=== PATIENT | female | born 1995 | race Caucasian/White ===

== ENCOUNTER 2023-09-02 06:07 | Inpatient (IN) | payer BC ==
[~2023-09-02] VITALS: Ht 167.6 cm; Wt 86.4 kg
[2023-09-02] VITALS (160 sets, daily range): BP systolic 61–162; BP diastolic 26–117; PULSE 58–127; TEMP 97.6–98.7; O2SAT 88–100
[~2023-09-02 06:07] MED LIST: COLACE 100100 MG/CAP PO; MOTRIN 800800 MG/TAB PO; NATURAL IRON65 MG; PRENATAL TABLET PO; PRILOSEC 20MG20 MG PO
[2023-09-02] MEDS ORDERED: LR 1,000 ML IV SCH (06:15)
[2023-09-02] MEDS ORDERED: LR & Oxytocin 500 ML IV SCH (06:15)
--- NOTE | 2023-09-02 06:20 | NUR ---
PT ORIENTED TO ROOM AND CHANGED INTO GOWN. PLACED ON MONITORS. FHT CATAGORY 1. FIRST BP HIGH DUE TO ANXIETY, BUT CAME DOWN AT REPEAT 10 MINUTES LATER. ME REPORTS REGULAR MOVEMENT, DENIES LOF OR VB.
[2023-09-02] MEDS ORDERED: TUMS500 MG PO (06:57)
[2023-09-02 07:03] LABS: BASO # 0.1 K/mm3 (0.0-0.2); BASO % 0.6 % (0.0-2.0); EOS # 0.2 K/mm3 (0.0-0.7); EOS % 1.9 % (0.0-4.0); GRAN # 6.8 K/mm3 (1.4-6.5); GRAN % 69.7 % (42.2-75.2); HEMOGLOBIN 11.1 g/dl (12.5-16.0); LYMPH % 20.2 % (20.0-51.0); MEAN CELL VOLUME 93 fl (80.0-100.0); MEAN CORPUSCULAR HEMOGLOBIN 30 pg (27-31); MEAN CORPUSCULAR HGB CONC 32 g/dl (33.0-37.0); MEAN PLATELET VOLUME 10.5 fl (7.4-10.4); MONO # 0.7 K/mm3 (0.1-0.6); MONO % 6.7 % (1.7-9.3); PLATELET COUNT 241 K/mm3 (130-400); RED BLOOD COUNT 3.73 M/mm3 (4.10-5.30); REDCELL DISTRIBUTION WIDTH-CV 14.4 % (11.5-14.5)
[2023-09-02 07:06] LABS: HEMATOCRIT 34.7 % (37.0-47.0)
--- NOTE | 2023-09-02 08:30 | NUR ---
DR FLOR CALLED TO CHECK IN ON PT. PT DOING WELL. BABY CATAGORY 1. PT BP WAS ELEVATED AT FIRST BP BUT HAS SINCE COME DOWN TO NORMAL. PIT IS AT 8. DR FLOR SAID OKAY, HE WOULD BE HERE IN ABOUT AN HOUR.
--- NOTE | 2023-09-02 10:44 | NUR ---
1044- CALLED LAUREN FOR PT REQUESTED EPIDURAL. HE SAID HE WAS ON HIS WAY. 1050- DR FLOR ON UNIT. ALERTED DR FLOR THAT PT BP WAS ELEVATED, BUT LAUREN WAS ON HIS WAY FOR AN EPIDURAL. DR FLOR SAID OKAY. 1102- TURNED PITOCIN DOWN FROM 14 TO [address] FLOR ALERTED TO THE CHANGE. 1111- LAUREN AT BEDSIDE FOR EPIDURAL PLACEMENT TALKING WITH PT ABOUT RISKS/SIDE EFFECTS. PT SEATED ON SIDE OF BED. PB AND O2 MONITORS APPLIED. BP ELEVATED, O2 WNL. 1125- TEST DOSE. PT TOLERATED PROCEEDURE WELL. TN WAS REPOSITIONED TO WEDGE LEFT. DIFFICULTY TRACING FHT AND CX DURRING THIS TIME.
[2023-09-02] MEDS ORDERED: ROPivacaine PF 0.2% 200 ML IV ONE ×2 (11:09→19:30)
[2023-09-02] MEDS ORDERED: diphenhydrAMINE 25 MG CAP PO PRN ×2 (11:45→19:45)
[2023-09-02] MEDS ORDERED: ePHEDrine 50 MG/10 ML VIAL IV PRN (11:45)
[2023-09-02] MEDS ORDERED: Ondansetron 4 MG/2 ML VIAL IV PRN ×3 (11:45→18:45)
[2023-09-02] MEDS ORDERED: diphenhydrAMINE 50 MG/ML 1 ML VIAL IV PRN (11:45)
[2023-09-02] MEDS ORDERED: Naloxone 0.4 MG/ML VIAL IV PRN ×3 (11:45→18:45)
[2023-09-02] MEDS ORDERED: Chloroprocaine PF 3% (30 MG/ML) 20 ML VIAL ONE (13:22)
[2023-09-02] MEDS ORDERED: Oxytocin 10 UNITS/ML VIAL ONE (13:29)
[2023-09-02] MEDS ORDERED: Ondansetron 4 MG/2 ML VIAL ONE (13:29)
[2023-09-02] MEDS ORDERED: NS 20 ML IV ONE ×2 (13:29→17:45)
[2023-09-02] MEDS ORDERED: Ketorolac 30 MG/ML VIAL ONE (13:29)
--- NOTE | 2023-09-02 13:30 | NUR ---
1143- PT SVE 6/100/0. DR FLOR ON UNIT NOTIFIED OF EXAM. 1208- FHT HAD A FEW VARIABLES, SVE 9/100/0. BERNAL PLACED AT THIS TIME. CLEAR YELLOW URINE SEEN. PT PLACED IN LL RIGHT LEG STIRUP. 1222- PT FEELING PRESURE. SVE PT COMPLETE, [address] FLOR ON UNIT NOTIFIED. DR FLOR OKAYED TO START PUSHING WITH PT. 1230- BEGAN PUSHING WITH PT. FIRST PUSH FHT HAD 90 SECOND DECEL. WAITED FOR BABY TO RECOVER FOR A FEW CX. 1241- BEGAN PUSHING AGAIN. PT PUSHED VERY WELL WITH EACH CX WITH NO DECENT. DR FLOR AT BEDSIDE SEVERAL TIMES WHILE PUSHING. 1318- DR FLOR LET PT KNOW THAT SHE WOULD NEED A DUE TO BABY NOT DECENDING. 1324- AZITHROMYCIN HUNG. 1328- LAUREN AT BEDSIDE DOSING PT FOR SURGERY. 1330- SECOND BERNAL PLACED. AT FIRST NO URINE RETURN. PT COUGHED AND BLOOD TINGED URINE CAME INTO VEIW. 1332- PT TAKEN TO OR BY BED.
[2023-09-02] MEDS ORDERED: dexAMETHasone 10 MG/ML VIAL ONE (13:35)
[2023-09-02] MEDS ORDERED: NS 10 ML IV ONE ×2 (13:45→16:50)
[2023-09-02] MEDS ORDERED: Phenylephrine 10 MG/ML VIAL ONE ×2 (13:46→16:46)
[2023-09-02] MEDS ORDERED: EPINEPHrine 1 MG/1 ML Ampule ONE (14:03)
[2023-09-02] MEDS ORDERED: Magnes Hydrox (MOM) 80 MG/ML 30 ML CUP PO PRN ×2 (14:45→18:45)
[2023-09-02] MEDS ORDERED: Loratadine 10 MG TAB PO PRN ×2 (14:45→18:45)
[2023-09-02] MEDS ORDERED: oxyCODONE 5 MG TAB PO PRN (14:45)
[2023-09-02] MEDS ORDERED: Morphine 4 MG/ML VIAL IV PRN ×2 (14:45→18:45)
[2023-09-02] MEDS ORDERED: LR 1,000 ML IV PRN ×2 (14:45→18:45)
[2023-09-02] MEDS ORDERED: Measles/Mumps/Rubella Virus Vaccine Live w Diluent 0.5 ML VIAL SQ SCH ×2 (14:45→18:45)
[2023-09-02] MEDS ORDERED: Acetaminophen 500 MG TAB PO SCH (14:45)
[2023-09-02] MEDS ORDERED: [UNRECOGNIZED DRUG - OTHER] IV ONE (15:47)
[2023-09-02] MEDS ORDERED: HETASTARCH IV ONE (15:47)
[2023-09-02 16:35] LABS: HEMATOCRIT 20.9 % (37.0-47.0); HEMOGLOBIN 6.6 g/dl (12.5-16.0)
[2023-09-02] MEDS ORDERED: NS 250 ML IV ONE (16:43)
[2023-09-02] MEDS ORDERED: Succinylcholine PF 200 MG/10 ML SYRINGE IV ONE (16:50)
[2023-09-02] MEDS ORDERED: Vecuronium 10 MG VIAL IV ONE (16:50)
[2023-09-02] MEDS ORDERED: fentaNYL 50 MCG/ML 5 ML VIAL ONE (16:51)
[2023-09-02] MEDS ORDERED: Sennosides/Docusate 8.6-50 MG TAB PO SCH (17:00)
[2023-09-02] MEDS ORDERED: ePHEDrine 50 MG/ML VIAL ONE (17:23)
[2023-09-02] MEDS ORDERED: Tranexamic Acid 1,000 MG/10 ML VIAL ONE (17:33)
--- NOTE | 2023-09-02 18:54 | NUR ---
Pt arrived in ICU from OB at 1615. At this time pt was severely hypotensive, tachycardic, temp 98.6, resp 16 100% o2 on 4L via oxymask. Pt received 1 full unit of blood in the ICU, and started a second unit on the way to OR. At no time did patient lose conciousness, patient was answering questions appropriately, but was lethargic. Transfusion protocol not followed d/t the emergent nature of the situation.
--- NOTE | 2023-09-02 19:30 | NUR ---
RECEIVED PATIENT FROM THE PACU. SHE IS A LITTLE DROWSY, BUT ALERT. SHE HAS A BERNAL CATHETER IN PLACE. AN EPIDURAL LINE ATTACHED TO AN EMPTY SYRINGE THE SUPERCHARGE REPAIR SUPERVISOR IS BRINING OVER THE PUMP AND MEDICATION FOR THE EPIDURAL. SHE HAS 2 IV'S, ONE IS INFUSING LR. SHE DOES ENDORSE SOME ABDOMINAL PAIN. SHE HAS A HORIZONTAL LOWER ABDOMEN INCISION COVERED WITH A DRESSING-C/D/I. ASSESSED HER VAGINAL BLEEDING. SHE IS ON 2L NC. SHE IS TACHYCARDIC AND SBP IN THE ONE TEENS. SHE HAS AN ABDOMINAL BINDER IN PLACE AND A PILLOW FOR SPLINTING. HER FAMILY IS WITH THE BABY AT THIS TIME.
[2023-09-02] MEDS ORDERED: Ibuprofen 600 MG TAB PO SCH (20:33)
--- NOTE | 2023-09-02 20:45 | NUR ---
THIS NURSE TO ICU TO EDUCATE JOSE, ICU NURSE ON CHECKING FUNDAL PLACEMENT. PT STATES THAT SHE HAS UTILIZED HER EPIDRUAL BUTTON 3 TIMES ALREADY AND IS RATING HER PAIN AT 5/10. JOSE, RN STATES THAT SHE ALSO HAS ORDERS FOR IV MORPHINE AVAILABLE AND WILL ADMINISTER IT TO HELP GET PAIN BETTER MANAGED. ABDOMINAL DRESSING CDI, LOCHIA WNL, FUNDUS FIRM AT THE UMBILICUS. DISCUSSED WITH PT HER WISHES FOR HOW TO FEED BABY THROUGHOUT THE NIGHT. PT STATES THAT SHE WOULD LIKE FORMULA TO BE GIVEN NEEDED SO SHE MAY REST. EDUCATED THAT MILK PRODUCTION MAY BE SLOW TO START DUE TO BLOOD LOSS IN C/S. IF SHE WOULD LIKE TO START PUMPING A PUMP COULD BE PROVIDED. UNDERSTANDING VERBALIZED BUT PT STATES DOESN'T WANT TO PUMP AT THIS TIME. JOSE, ICU NURSE INSTRUCTED TO CALL OB UNIT IF SHE HAS ANY FURTHER QUESTIONS OR CONCERNS ABOUT CARES.
--- NOTE | 2023-09-02 20:53 | NUR ---
1435- PT TO PACU. VITAL SIGNS WNL. PT VERY SHAKEY. LAUREN AT BEDSIDE TALKING WITH PT AND ASSESSING BP. THIS RN WENT TO ASSESS FUNDUS AND PT JUMPED IN PAIN. LAUREN BOLUSED THE EPIDURAL CATHETER. 1450- TRYED TO SIT PT UP TO HELP INCREASE BP, BUT PT FELT LIGHT HEADED AND ASKED TO LAY BACK DOWN. 1455- NOTICED THAT THE EDGE OF ABDOMINAL BANDAGE HAD BLOODY SEEPAGE. 1505- PT'S FUNDUS WAS DEVIATED TO THE RIGHT SIDE. CALLED CHARGE NURSE CASIE TO ASSESS WITH ME IF THE BERNAL CATHETER WAS DRAINING PROPERLY. URINE OUTPUT WAS BRIGHT CATSILLO RED. CHARGE ASKED ME TO SADIA A BORDER ON THE ABDOMINAL BANDAGE SO WE COULD CONTINUE TO MONITOR. DR FLOR WAS NOTIFED AT THIS TIME ABOUT THE BANDAGE AND PT'S PAIN. DR FLOR, ON UNIT, CAME BEDSIDE TO ASSESS PT AND BANDAGE SEVERAL TIMES. LAUREN ALSO AT BEDSIDE SEVERAL TIMES ASSESSING PT'S BP. AT APPROXIMATELY 1530 LAUREN WAS NOTIFIED AGAIN THAT PT BP WAS 61/33. PT WAS PALE, AND VERY LIGHT HEADED. LAUREN SAID TO GET PT ANOTHER BAG OF FLUIDS ON A PRESSURE PUMP AND ORDER AN H&H AND TYPE AND CROSS. ORDERS PLACED. PT REMAINS UNSTABLE. 1558- CALL WAS PLACED TO THE RAPID RESPONSE TEAM DUE TO PT CONTINUING TO DECLINE AND DRS GOING INTO THE OR FOR ANOTHER . PT WAS PALE, LIGHT HEADED, SLURRING SOME OF HER WORDS AND GETTING CONFUSED. WHEN RAPID RESPONSE TEAM ARRIVED PT'S BP WAS 62/38. PT WAS PLACED IN [place]. PT WAS GIVEN HER 6TH BAG OF LR, A PRESSURE BAG WAS USED FOR THIS BAG WELL. ORDERS GIVEN FOR 2 UNITS OF PRBC TO THE RAPID RESPONSE TEAM. THE RAPID RESPONSE TEAM MOVED THE PT TO [facility] AT 1617.
[2023-09-02] MEDS ORDERED: traZODone 50 MG TAB PO PRN ×2 (21:00)
--- NOTE | 2023-09-02 21:00 | NUR ---
PRECIOUS THE CHARGE NURSE FROM OB IS AT THE BEDSIDE. SHE HAS FOUND THE FUNDUS FOR THIS NURSE. AT THIS TIME IT IS IN THE LOWER ABDOMEN, APPROX. MIDLINE.
[2023-09-02 21:29] LABS: HEMATOCRIT 27.2 % (37.0-47.0)
[2023-09-02 21:45] LABS: ALBUMIN 2.1 g/dL (3.5-5.0); BILIRUBIN,TOTAL 0.8 mg/dL (0.2-1.2); CALCIUM 7.5 mg/dL (8.4-10.2); CREATININE, serum 0.65 mg/dL (0.57-1.11); POTASSIUM 4.6 mEq/L (3.5-4.5)
--- NOTE | 2023-09-02 22:00 | NUR ---
FUNDAL CHECK-REMAINS MIDLINE IN THE LOWER ABDOMEN.
--- NOTE | 2023-09-02 23:00 | NUR ---
FUNDAL CHECK- REMAINS MIDLINE IN THE LOWER ABDOMEN. NO CHANGE FROM PREVIOUS ASSESSMENT.
[2023-09-03] VITALS (367 sets, daily range): BP systolic 109–143; BP diastolic 53–88; PULSE 93–120; TEMP 98.5–99.5; O2SAT 95–100
--- NOTE | 2023-09-03 | NUR ---
FUNDAL CHECK-IN THE LOWER ABDOMEN APPROX. MIDLINE. DOES NOT APPEAR TO HAVE MOVED FROM PREVIOUS ASSESSMENT.
[2023-09-03 03:28] LABS: CALCIUM 7.5 mg/dL (8.4-10.2); CREATININE, serum 0.68 mg/dL (0.57-1.11); POTASSIUM 4.5 mEq/L (3.5-4.5)
[2023-09-03 04:05] LABS: BASO % 0.2 % (0.0-2.0); GRAN # 12.9 K/mm3 (1.4-6.5); GRAN % 87.9 % (42.2-75.2); MEAN CORPUSCULAR HGB CONC 34 g/dl (33.0-37.0); MONO # 0.7 K/mm3 (0.1-0.6); MONO % 4.4 % (1.7-9.3); PLATELET COUNT 154 K/mm3 (130-400); RED BLOOD COUNT 2.45 M/mm3 (4.10-5.30); REDCELL DISTRIBUTION WIDTH-CV 16.3 % (11.5-14.5)
[2023-09-03 04:15] LABS: HEMATOCRIT 20.6 % (37.0-47.0); MEAN CELL VOLUME 84 fl (80.0-100.0)
[2023-09-03 04:16] LABS: MEAN CORPUSCULAR HEMOGLOBIN 29 pg (27-31)
[2023-09-03] MEDS ORDERED: Sennosides/Docusate 8.6-50 MG TAB PO SCH (08:00)
[2023-09-03] MEDS ORDERED: oxyCODONE 5 MG TAB PO PRN (09:00)
[2023-09-03] MEDS ORDERED: Furosemide 40 MG/4 ML VIAL IV ONE (09:00)
[2023-09-03] MEDS ORDERED: LR 1,000 ML IV PRN (09:15)
[2023-09-03] MEDS ORDERED: LR 1,000 ML IV SCH ×2 (09:15)
--- NOTE | 2023-09-03 09:26 | NUR ---
Customs Compliance Specialist met with patient to complete initial intake. Patient delivered her baby daughter yesterday and was transferred to the ICU after her . Patient's , Lee (ph#[phone]) and baby Lexy are at bedside. Patient also has a 19 month old daughter, Na at home. Patient is employed at [employer] and plans to take at least 8 weeks off pending further recommendations from her OB provider. Patient advised Na attends a daycare in [place], which is where they live. Patient's primary care provider is Dr. Sotelo and she gets any needed medications at [facility]. Patient stated she has everything needed for baby at home, including a breast pump. Patient is not going to pump right now as she is already under a lot of stress with her medical condition. Patient does not have DPOA-HC and her , Lee is legal next of kin. If patient remains stable, she will likely return to the OB floor this afternoon. Discharge Plan: Home
--- NOTE | 2023-09-03 11:20 | NUR ---
Pt resting in bed with at bedside. VSS. OB physician at bedside to discuss plan of care with pt. Epidural in place. OB DENITRATOR at bedside to remove epidural 0915. OB RN at bedside to perform fundal exam 1000. One unit of PRBC's infusing without difficulty 1015. Pt to return to labor and delivery unit this afternoon after blood products finish infusing. Pt does not have any questions or complaints at this time.
[2023-09-03] MEDS ORDERED: Ibuprofen 600 MG TAB PO SCH (12:00)
[2023-09-03 13:36] LABS: HEMATOCRIT 24.4 % (37.0-47.0); HEMOGLOBIN 8.4 g/dl (12.5-16.0)
--- NOTE | 2023-09-03 16:20 | NUR ---
PT TRANSFERED TO OB UNIT VIA WHEELCHAIR ACCOMPANIED BY ICU NURSES. PT AMBULATORY TO BED WITH 1 RN ASSIST. PT STILL HAS INTERNAL BERNAL CATHETER AND ARRIVED WITH 135ML URINE IN BAG. PT VS STABLE, AWAKE AND ALERT X3. PT HAS 2 IV SITES, 18 SHEY IN LEFT FOREARM AND 20 SHEY IN RIGHT ANTICUBITAL. PT SPOUSE AND FAMILY SUPPORTIVE AT BEDSIDE. PT REPORTS FEELING 0-1.
--- NOTE | 2023-09-03 16:36 | NUR ---
Pt received transfer orders to return to labor and delivery unit. IV fluids removed. Protable telemetry box attached to pt prior to transfer. VSS. Pt transferred to labor and delivery unit via wheelchair. HEAVY TRUCK MECHANIC's with pt at time of transfer. OB RN met in room upon arrival to labor and delivery unit. Pt family in room. Pt transferred from wheelchair to bed. Care transferred to [facility].
[2023-09-03 19:39] LABS: HEMATOCRIT 24.8 % (37.0-47.0); HEMOGLOBIN 8.5 g/dl (12.5-16.0)
[2023-09-03] MEDS ORDERED: Acetaminophen 500 MG TAB PO PRN (22:00)
--- NOTE | 2023-09-03 22:21 | NUR ---
PT STATES URGE TO VOID, ASSISTED TO BATHROOM. PT STATES THAT THE HAT MAKES HER UNCOMFORTABLE AND IS MAKING IT DIFFICULT FOR HER TO VOID. EDUCATED THAT 3 VOIDS MUST BE MEASURED AND THEN WE CAN REMOVE THE HAT COMPLETELY. UNDERSTANDING VERBALIZED. AFTER SEVERAL MINUTES PT STILL UNABLE TO VOID. REQUESTS TO PUSH FLUIDS AND AMBULATE AND THEN SHE WOULD LIKE TO ATTEMPT AGAIN.
[2023-09-04 04:15] VITALS: BP 114/73; PULSE 90; TEMP 97.7
[2023-09-04 05:32] LABS: BASO # 0.1 K/mm3 (0.0-0.2); BASO % 0.4 % (0.0-2.0); EOS # 0.1 K/mm3 (0.0-0.7); GRAN # 9.6 K/mm3 (1.4-6.5); LYMPH # 1.9 K/mm3 (1.2-3.4); LYMPH % 15.3 % (20.0-51.0); MEAN CELL VOLUME 86 fl (80.0-100.0); MEAN CORPUSCULAR HGB CONC 33 g/dl (33.0-37.0); MEAN PLATELET VOLUME 9.9 fl (7.4-10.4); MONO # 0.8 K/mm3 (0.1-0.6); MONO % 6.4 % (1.7-9.3); PLATELET COUNT 142 K/mm3 (130-400); RED BLOOD COUNT 2.75 M/mm3 (4.10-5.30); REDCELL DISTRIBUTION WIDTH-CV 16.7 % (11.5-14.5)
[2023-09-04 05:35] LABS: HEMATOCRIT 23.6 % (37.0-47.0); HEMOGLOBIN 7.8 g/dl (12.5-16.0); MEAN CORPUSCULAR HEMOGLOBIN 28 pg (27-31)
[2023-09-04 06:04] LABS: CALCIUM 8.2 mg/dL (8.4-10.2); CREATININE, serum 0.54 mg/dL (0.57-1.11); POTASSIUM 4.1 mEq/L (3.5-4.5)
[2023-09-04 08:00] VITALS: BP 127/75; PULSE 86
[2023-09-04 12:00] VITALS: BP 117/70; PULSE 80
--- NOTE | 2023-09-04 14:09 | NUR ---
Campground Attendant followed up with patient in response to OB consult for concerns for mother/baby bonding. GUILLERMINA met with RN prior to follow up who advised patient has been doing better today. SW met with patient and her mother at bedside. Patient stated she is doing better and feels better than she did yesterday. Patient advised her and mother are very supportive and she has no questions or concerns at this time. Baby was in bassinet and patient recognized baby was hungry. Patient was wearing a pumping bra and stated she was about to pump. SW provided and reviewed resources including those for maternal mental health. Patient stated she has no history of post depression but is receptive of these resources. GUILLERMINA contacted Dr. Monteiro with the above update.
[2023-09-04 16:00] VITALS: BP 122/72; PULSE 86
[2023-09-04 19:15] VITALS: BP 140/79; PULSE 101; TEMP 98
[2023-09-05 01:00] VITALS: BP 134/83; PULSE 53; TEMP 98
[2023-09-05 07:00] VITALS: BP 131/76; PULSE 97; TEMP 98
[2023-09-05] MEDS ORDERED: IBU600 MG PO (09:39)
[2023-09-05] MEDS ORDERED: ROXICODONE 55 MG/TAB PO (09:39)
[2023-09-05] MEDS ORDERED: Furosemide 20 MG TAB PO ONE (09:45)
== END 2023-09-05 12:56 | disposition home or self-care (01) | DRG 786 ==
LOC: LDR 06:07 → ICU 06:07 → OB 14:23 → ICU 17:23 → OB 09-03 16:30
PROVIDERS: Internal Medicine; Physician Assistant; ADMIT Obstetrics & Gynecology
PROC: 10907ZC Drainage of Amniotic Fluid, Therapeutic from Products of Conception, Via Natural or Artificial Opening (ICD-10-PCS; 2023-09-02)
PROC: 3E033VJ Introduction of Other Hormone into Peripheral Vein, Percutaneous Approach (ICD-10-PCS; 2023-09-02)
PROC: 04L Lower Arteries, Occlusion (ICD-10-PCS; 2023-09-02)
PROC: 0UQ90ZZ Repair Uterus, Open Approach (ICD-10-PCS; 2023-09-02)
PROC: 10D00Z1 Extraction of Products of Conception, Low, Open Approach (ICD-10-PCS; principal; 2023-09-02 16:30)
PROC: 30233N1 Transfusion of Nonautologous Red Blood Cells into Peripheral Vein, Percutaneous Approach (ICD-10-PCS; 2023-09-03)
PROC: 30233K1 Transfusion of Nonautologous Frozen Plasma into Peripheral Vein, Percutaneous Approach (ICD-10-PCS; 2023-09-03)
DX: O99.02 Anemia complicating childbirth (principal); K66.1 Hemoperitoneum; O72.1 Other immediate postpartum hemorrhage; Z37.0 Single live birth; O76 Abnormality in fetal heart rate and rhythm complicating labor and delivery; O62.0 Primary inadequate contractions; O99.03 Anemia complicating the puerperium; D50.0 Iron deficiency anemia secondary to blood loss (chronic); I95.9 Hypotension, unspecified; O36.63X0 Maternal care for excessive fetal growth, third trimester, not applicable or unspecified; O69.81X0 Labor and delivery complicated by cord around neck, without compression, not applicable or unspecified; O90.89 Other complications of the puerperium, not elsewhere classified; K59.00 Constipation, unspecified; Z3A.39 39 weeks gestation of pregnancy
CPT/HCPCS: J0171; J0665; J0690; J1100; J1885; J1940; J2270; J2371; J2401; J2405; J2590; J2704; J2795; J3010; J7050; J7120; P9016